=== PATIENT | male | born 1960 | race African-American/Black ===

== ENCOUNTER 2021-10-23 07:13 | Inpatient (IN) | payer MEDICARE, MEDICAID ==
[2021-10-23] VITALS (56 sets, daily range): BP systolic 105–169; BP diastolic 65–110
[~2021-10-23] VITALS: Ht 190.5 cm; Wt 86.7 kg
[2021-10-23 07:41] LABS: BASOPHILS % 0.6 % (0.0-2.0); EOSINOPHILS % 2.7 % (0.0-5.0); HEMATOCRIT. 51.5 % (42.0-52.0); HEMOGLOBIN. 16.7 g/dL (14.0-18.0); LYMPHOCYTES % 35.2 % (20.0-50.0); MEAN CORPUSCULAR HEMOGLOBIN 28.8 pg (28.0-32.0); MONOCYTES % 6.1 % (2.0-8.0); NEUTROPHILS % 55.4 % (40.0-76.0); PLATELET 259 x1000/uL (130-400); RED BLOOD CELL COUNT 5.79 mill/uL (4.7-6.1); RED CELL DISTRIBUTION WIDTH 17.6 % (11.6-14.6)
[2021-10-23 07:48] LABS: CHLORIDE 112 mEq/L (98-107)
[2021-10-23] MEDS ORDERED: HEPARIN 5000 UNITS/ML VIAL IV ONE (08:15)
[2021-10-23] MEDS ORDERED: ASPIRIN 325MG EC TABLET PO ONE (08:15)
[2021-10-23] MEDS ORDERED: LIDOCAINE HCL/PF 1% 10 MG/ML 5ML VIAL ONE ×2 (08:16→08:35)
[2021-10-23] MEDS ORDERED: IODIXANOL 320MG/ML 100 ML BOTTLE IV ONE (08:16)
[2021-10-23] MEDS ORDERED: HEPARIN 1000 UNITS/ML 10ML ONE (08:16)
[2021-10-23] MEDS ORDERED: VERAPAMIL HCL 2.5 MG/1 ML 2ML VIAL IV ONE (08:16)
[2021-10-23] MEDS ORDERED: FENTANYL CITRATE/PF 50MCG/ML 2ML VIAL ONE (08:16)
[2021-10-23] MEDS ORDERED: DIPHENHYDRAMINE 50MG/ML VIAL ONE (08:16)
[2021-10-23] MEDS ORDERED: MIDAZOLAM HCL 2 MG/2 ML VIAL ONE (08:16)
[2021-10-23] MEDS ORDERED: HYDRALAZINE 20MG/ML VIAL ONE ×2 (09:10→09:28)
[2021-10-23] MEDS ORDERED: CLOPIDOGREL 75MG TABLET ONE (09:21)
[2021-10-23] MEDS ORDERED: TICAGRELOR 90 MG TABLET PO ONE (09:30)
[2021-10-23] MEDS ORDERED: CARVEDILOL 12.5MG TABLET PO NR (10:30)
[2021-10-23] MEDS ORDERED: NITROGLYCERIN 0.4MG TABLET SL SL PRN (10:30)
[2021-10-23] MEDS ORDERED: ACETAMINOPHEN 325MG TABLET PO PRN ×3 (10:30)
[2021-10-23] MEDS ORDERED: ZOLPIDEM TARTRATE 5MG TABLET PO PRN (10:30)
[2021-10-23] MEDS ORDERED: DOCUSATE SODIUM 100MG CAPSULE PO PRN (10:30)
[2021-10-23] MEDS ORDERED: ONDANSETRON HCL 4MG/2ML INJ IV PRN ×2 (10:30)
[2021-10-23] MEDS ORDERED: GUAIFENESIN 200MG/10ML SUGAR FREE UDC PO PRN (10:30)
[2021-10-23] MEDS ORDERED: IPRATROPIUM/ALBUTEROL 0.5-3(2.5)MG/3ML NEB NEB PRN (10:30)
[2021-10-23] MEDS ORDERED: TRAMADOL 50MG TABLET PO PRN (10:30)
[2021-10-23] MEDS ORDERED: MORPHINE SULFATE 2 MG/ML CPJ (NOT FOR IM USE) IV PRN (10:30)
[2021-10-23] MEDS ORDERED: NA PHOS,M-B/NA PHOS,DI-BA ENEMA 118ML PR PRN (10:30)
[2021-10-23] MEDS ORDERED: ATROPINE SULFATE 1MG/10ML SYR IV PRN (10:30)
[2021-10-23] MEDS ORDERED: MAGNESIUM/ALUMINUM HYDROXIDE/SIMETHICONE 30ML UDC PO PRN (10:30)
[2021-10-23] MEDS ORDERED: CLONIDINE 0.1MG TABLET PO PRN (10:30)
[2021-10-23] MEDS ORDERED: NALOXONE HCL 0.4MG/ML VIAL IV PRN (10:45)
[2021-10-23] MEDS: FAMOTIDINE 20MG TABLET PO SCH (12:47)
[2021-10-23] MEDS: AMLODIPINE 10MG TABLET PO SCH (12:48)
[2021-10-23] MEDS: NITROGLYCERIN OINT 1GM/INCH UDPKT TD SCH ×3 (12:48→21:17)
[2021-10-23] MEDS: HYDRALAZINE HCL 50MG TABLET PO SCH ×2 (15:19→21:17)
[2021-10-23] MEDS: ISOSORB DINIT/HYDRALAZINE HCL 20/37.5MG TABLET PO SCH ×2 (15:20→21:17)
[2021-10-23 15:30] LABS: FOLIC ACID (FOLATE) SERUM 5.3 ng/mL (>5.38)
[2021-10-23] MEDS ORDERED: SPIR25TA6 MT (15:39)
[2021-10-23] MEDS ORDERED: TELM20TA2 PO (15:39)
[2021-10-23] MEDS ORDERED: ASPI-1497 PO (15:39)
[2021-10-23] MEDS ORDERED: LISI20TA31 MT (15:39)
[2021-10-23] MEDS ORDERED: ROSU5TAB PO (15:39)
[2021-10-23] MEDS ORDERED: TRAM50TA94 MT (15:39)
[2021-10-23] MEDS ORDERED: COR25 PO (15:39)
[2021-10-23] MEDS ORDERED: WARF-53 MT (15:39)
[2021-10-23] MEDS ORDERED: AMIO100T4 PO (15:39)
[2021-10-23] MEDS ORDERED: MINO2.5T2 PO (15:39)
[2021-10-23] MEDS ORDERED: ATROV3 INH (15:39)
[2021-10-23] MEDS ORDERED: FURO80TA3 MT (15:39)
[2021-10-23] MEDS ORDERED: ASPIRIN 81MG EC TABLET PO NR (17:15)
[2021-10-23] MEDS ORDERED: TICAGRELOR 90 MG TABLET PO NR (17:15)
[2021-10-23 17:41] LABS: *AMPHETAMINES SCREEN URINE NEGATIVE (NEGATIVE); *BARBITURATES SCREEN URINE NEGATIVE (NEGATIVE); *BENZODIAZEPINES SCREEN URINE PRESUMTIVE POSITIVE (NEGATIVE); *COCAINE SCREEN URINE NEGATIVE (NEGATIVE); CANNABINOID URINE SCREEN PRESUMTIVE POSITIVE (NEGATIVE); METHADONE URINE SCREEN NEGATIVE (NEGATIVE); OPIATES URINE SCREEN NEGATIVE (NEGATIVE); PHENCYCLIDINE URINE SCREEN NEGATIVE (NEGATIVE)
[2021-10-23 17:48] LABS: INR 3.4; PROTHROMBIN TIME 32.8 sec (9.6-11.0)
[2021-10-23 18:14] LABS: ETHANOL BLOOD < 10 mg/dL; HDL CHOLESTEROL 37 mg/dL (40-59); LDL CHOLESTEROL 75 mg/dL (5-100); T4 FREE 1.33 ng/dL (0.76-1.46); TOTAL IRON BINDING CAPACITY 308 ug/dL (250-450)
[2021-10-23] MEDS: CARVEDILOL 12.5MG TABLET PO SCH (18:15)
[2021-10-23] MEDS ORDERED: ATORVASTATIN CALCIUM 40MG TABLET PO SCH ×2 (21:00)
[2021-10-23] MEDS: FUROSEMIDE 40MG/4ML VIAL IVP SCH (21:16)
[2021-10-23] MEDS: ATORVASTATIN CALCIUM 40MG TABLET PO SCH (21:17)
[2021-10-23 23:44] LABS: PROTHROMBIN TIME 29.5 sec (9.6-11.0)
[2021-10-24] VITALS (19 sets, daily range): BP systolic 113–167; BP diastolic 50–121
[2021-10-24 00:45] LABS: CREATINE KINASE MB FRACTION 4.8 ng/mL (0.5-3.6)
[2021-10-24] MEDS: NITROGLYCERIN OINT 1GM/INCH UDPKT TD SCH ×3 (06:00→21:02)
[2021-10-24] MEDS: CARVEDILOL 12.5MG TABLET PO SCH ×2 (06:00→17:28)
[2021-10-24] MEDS: ISOSORB DINIT/HYDRALAZINE HCL 20/37.5MG TABLET PO SCH ×3 (06:00→21:01)
[2021-10-24] MEDS: HYDRALAZINE HCL 50MG TABLET PO SCH ×3 (06:00→21:01)
[2021-10-24] MEDS: FAMOTIDINE 20MG TABLET PO SCH (09:00)
[2021-10-24] MEDS: AMLODIPINE 10MG TABLET PO SCH (09:00)
[2021-10-24 11:59] LABS: CHLORIDE 107 mEq/L (98-107)
[2021-10-24] MEDS ORDERED: TICAGRELOR 90 MG TABLET PO SCH (12:00)
[2021-10-24 12:02] LABS: BASOPHILS % 0.6 % (0.0-2.0); EOSINOPHILS % 1.5 % (0.0-5.0); HEMATOCRIT. 45.6 % (42.0-52.0); HEMOGLOBIN. 15.2 g/dL (14.0-18.0); LYMPHOCYTES % 14.7 % (20.0-50.0); MEAN CORPUSCULAR HEMOGLOBIN 28.6 pg (28.0-32.0); MEAN CORPUSCULAR VOLUME 85.9 fL (80.0-94.0); MEAN PLATELET VOLUME 9.1 fl (7.4-10.4); MONOCYTES % 7.2 % (2.0-8.0); PLATELET 231 x1000/uL (130-400); RED BLOOD CELL COUNT 5.31 mill/uL (4.7-6.1); RED CELL DISTRIBUTION WIDTH 16.6 % (11.6-14.6)
[2021-10-24] MEDS: FUROSEMIDE 40MG/4ML VIAL IVP SCH ×2 (12:06→20:57)
[2021-10-24 12:13] LABS: PHOSPHORUS 2.3 mg/dL (2.5-4.9)
[2021-10-24] MEDS: CLOPIDOGREL 75MG TABLET PO SCH (12:41)
[2021-10-24] MEDS: ASPIRIN 81MG EC TABLET PO SCH (12:41)
[2021-10-24] MEDS ORDERED: TICAGRELOR 90 MG TABLET PO NR (13:00)
[2021-10-24] MEDS: ATORVASTATIN CALCIUM 40MG TABLET PO SCH (20:57)
[2021-10-24] MEDS ORDERED: CLOPIDOGREL 75MG TABLET PO NR (21:00)
[2021-10-25] VITALS (17 sets, daily range): BP systolic 75–162; BP diastolic 61–124
[2021-10-25] MEDS: CARVEDILOL 12.5MG TABLET PO SCH (06:15)
[2021-10-25] MEDS: ISOSORB DINIT/HYDRALAZINE HCL 20/37.5MG TABLET PO SCH ×2 (06:15→14:24)
[2021-10-25] MEDS: NITROGLYCERIN OINT 1GM/INCH UDPKT TD SCH ×2 (06:15→14:24)
[2021-10-25] MEDS: HYDRALAZINE HCL 50MG TABLET PO SCH ×2 (06:15→14:24)
[2021-10-25] MEDS: CLOPIDOGREL 75MG TABLET PO SCH (08:23)
[2021-10-25] MEDS: FUROSEMIDE 40MG/4ML VIAL IVP SCH (08:23)
[2021-10-25] MEDS: AMLODIPINE 10MG TABLET PO SCH (08:24)
[2021-10-25] MEDS: FAMOTIDINE 20MG TABLET PO SCH (08:24)
[2021-10-25] MEDS: ASPIRIN 81MG EC TABLET PO SCH (08:24)
[2021-10-26] MEDS ORDERED: FUROSEMIDE 40MG TABLET PO SCH (09:00)
== END 2021-10-25 15:00 | disposition home or self-care (01) | DRG 246 ==
LOC: ER 07:13 → CVICU 08:41 → EDBEDREQ 08:43 → EDBEDREQTM 08:43
PROVIDERS: ADMIT Internal Medicine; ATTEND Internal Medicine
PROC: 027034Z Dilation of Coronary Artery, One Artery with Drug-eluting Intraluminal Device, Percutaneous Approach (ICD-10-PCS; principal; 2021-10-23)
PROC: B211YZZ Fluoroscopy of Multiple Coronary Arteries using Other Contrast (ICD-10-PCS; 2021-10-23)
PROC: 5A09357 Assistance with Respiratory Ventilation, Less than 24 Consecutive Hours, Continuous Positive Airway Pressure (ICD-10-PCS; 2021-10-23)
DX: I21.19 ST elevation (STEMI) myocardial infarction involving other coronary artery of inferior wall (principal); I50.43 Acute on chronic combined systolic (congestive) and diastolic (congestive) heart failure; J96.01 Acute respiratory failure with hypoxia; N17.0 Acute kidney failure with tubular necrosis; I42.9 Cardiomyopathy, unspecified; I13.0 Hypertensive heart and chronic kidney disease with heart failure and stage 1 through stage 4 chronic kidney disease, or unspecified chronic kidney disease; N18.9 Chronic kidney disease, unspecified; E78.5 Hyperlipidemia, unspecified; J44.9 Chronic obstructive pulmonary disease, unspecified; Z82.49 Family history of ischemic heart disease and other diseases of the circulatory system; Z95.810 Presence of automatic (implantable) cardiac defibrillator; Z20.822 Contact with and (suspected) exposure to COVID-19; I73.9 Peripheral vascular disease, unspecified; I71.4 Abdominal aortic aneurysm, without rupture; I48.0 Paroxysmal atrial fibrillation; Z95.5 Presence of coronary angioplasty implant and graft; Z79.899 Other long term (current) drug therapy; Z79.02 Long term (current) use of antithrombotics/antiplatelets
CPT/HCPCS: 36415; 71045; 80048; 80053; 80061; 80305; 80320; 82550; 82553; 82607; 82746; 82962; 83036; 83540; 83550; 83735; 83880; 84100; 84439; 84443; 84484; 85025; 85347; 87426; 92928; 93005; 93306; 93458; 93970; 94660; 97162; 97166; 99291; C1725; C1760; C1769; C1874; C1887; C1893; C9803; J0360; J1200; J1644; J1940; J2250; J3010; J3490; Q9967; G0480; J8499

== ENCOUNTER 2022-01-09 17:22 | Inpatient (IN) | payer MEDICARE, MEDICAID ==
[~2022-01-09] VITALS: Ht 182.9 cm; Wt 91.0 kg
[~2022-01-09 17:22] MED LIST: AMIO100T4 PO; ASPI-1497 PO; ATROV3 INH; COR25 PO; FURO80TA3 MT; LISI20TA31 MT; MINO2.5T2 PO; ROSU5TAB PO; SPIR25TA6 MT; TELM20TA2 PO; TRAM50TA94 MT; WARF-53 MT
[2022-01-09] MEDS ORDERED: METHYLPREDNISOLONE SOD SUCC 125 MG/2 ML VIAL IV STA (17:32)
[2022-01-09] MEDS ORDERED: ALBUTEROL (0.083%) 2.5MG/3ML NEB HHN NR (17:32)
[2022-01-09] MEDS ORDERED: IPRATROPIUM BROMIDE (0.02%) 0.5MG/2.5ML NEB HHN NR (17:32)
[2022-01-09] MEDS ORDERED: IPRATROPIUM BROMIDE (0.02%) 0.5MG/2.5ML NEB HHN STA (17:32)
[2022-01-09] MEDS ORDERED: ALBUTEROL (0.083%) 2.5MG/3ML NEB HHN STA (17:32)
[2022-01-09] MEDS ORDERED: MAGNESIUM 2 G PREMIX 50 ML IV ONE (17:45)
[2022-01-09 17:49] LABS: BASOPHILS % 0.7 % (0.0-2.0); EOSINOPHILS % 5.6 % (0.0-5.0); HEMATOCRIT. 50.8 % (42.0-52.0); HEMOGLOBIN. 16.1 g/dL (14.0-18.0); LYMPHOCYTES % 39.5 % (20.0-50.0); MEAN CORPUSCULAR HEMOGLOBIN 28.8 pg (28.0-32.0); MEAN CORPUSCULAR VOLUME 90.7 fL (80.0-94.0); MONOCYTES % 6.4 % (2.0-8.0); NEUTROPHILS % 47.8 % (40.0-76.0); PLATELET 306 x1000/uL (130-400); RED CELL DISTRIBUTION WIDTH 15.4 % (11.6-14.6)
[2022-01-09 17:51] LABS: BG BASE EXCESS -14.1 mmol/L (-2.0-2.0); BG CARBOXYHEMOGLOBIN 0.8 % (0.5-1.5); BG DEOXYHEMOGLOBIN 3.5 % (0.0-5.0); BG FRACTION INSPIRED OXYGEN 100; BG HCO3 ACT 12.1 mmol/L (22.0-26.0); BG METHEMOGLOBIN 0.4 % (0.0-1.5); BG OXYGEN SATURATION 96.5 % (92.0-98.5); BG OXYHEMOGLOBIN 95.3 % (94.0-97.0); BG PCO2 30.2 mmHg (35.0-45.0); BG SAMPLE SITE LEFT RADIAL; BG TOTAL HEMOGLOBIN 16.9 g/dL (12.0-18.0); BG VENT MODE MASK - NRB
[2022-01-09] MEDS ORDERED: ONDANSETRON HCL 4MG/2ML INJ IV ONE (18:00)
[2022-01-09 18:01] LABS: PARTIAL THROMBOPLASTIN TIME 44.1 sec (23.4-31.0); PROTHROMBIN TIME 20.8 sec (9.6-11.0)
[2022-01-09 18:07] LABS: CHLORIDE 100 mEq/L (98-107)
[2022-01-09] MEDS ORDERED: AZITHROMYCIN 500 MG TABLET PO ONE (22:15)
[2022-01-09] MEDS ORDERED: ONDANSETRON HCL 4MG/2ML INJ IV PRN (22:30)
[2022-01-09] MEDS ORDERED: MAGNESIUM/ALUMINUM HYDROXIDE/SIMETHICONE 30ML UDC PO PRN (22:30)
[2022-01-09] MEDS ORDERED: ACETAMINOPHEN 325MG TABLET PO PRN ×2 (22:30)
[2022-01-09] MEDS ORDERED: NITROGLYCERIN 0.4MG TABLET SL SL PRN (22:30)
[2022-01-09] MEDS ORDERED: ZOLPIDEM TARTRATE 5MG TABLET PO PRN (22:30)
[2022-01-09] MEDS ORDERED: CLONIDINE 0.1MG TABLET PO PRN (22:30)
[2022-01-09] MEDS ORDERED: DOCUSATE SODIUM 100MG CAPSULE PO PRN (22:30)
[2022-01-09] MEDS ORDERED: TRAMADOL 50MG TABLET PO PRN (22:30)
[2022-01-09] MEDS ORDERED: NA PHOS,M-B/NA PHOS,DI-BA ENEMA 118ML PR PRN (22:30)
[2022-01-09] MEDS ORDERED: IPRATROPIUM/ALBUTEROL 0.5-3(2.5)MG/3ML NEB NEB PRN (22:30)
[2022-01-09] MEDS ORDERED: AMLODIPINE 10MG TABLET PO SCH (22:30)
[2022-01-09] MEDS ORDERED: METOLAZONE 10MG TABLET PO NR (22:30)
[2022-01-09] MEDS ORDERED: GUAIFENESIN 200MG/10ML SUGAR FREE UDC PO PRN (22:30)
[2022-01-09] MEDS ORDERED: WARFARIN SODIUM 5MG TABLET PO NR (23:30)
[2022-01-10 00:03] LABS: T4 FREE 1.51 ng/dL (0.76-1.46)
[2022-01-10] MEDS ORDERED: AZITHROMYCIN 500 MG TABLET PO NR (00:15)
[2022-01-10 00:27] LABS: VITAMIN B12 SERUM 179 pg/mL (211-911)
[2022-01-10 04:49] LABS: HEMATOCRIT. 46.7 % (42.0-52.0); HEMOGLOBIN. 15.3 g/dL (14.0-18.0); MEAN CORPUSCULAR HEMOGLOBIN 28.8 pg (28.0-32.0); MEAN CORPUSCULAR VOLUME 87.9 fL (80.0-94.0); MEAN PLATELET VOLUME 8.7 fl (7.4-10.4); PLATELET 235 x1000/uL (130-400); RED BLOOD CELL COUNT 5.32 mill/uL (4.7-6.1); RED CELL DISTRIBUTION WIDTH 15.8 % (11.6-14.6)
[2022-01-10 04:55] LABS: CHLORIDE 101 mEq/L (98-107)
[2022-01-10 04:59] LABS: INR 1.9; PROTHROMBIN TIME 19.3 sec (9.6-11.0)
[2022-01-10 05:07] LABS: CREATINE KINASE 52 IU/L (39-308); PHOSPHORUS 3.6 mg/dL (2.5-4.9)
[2022-01-10 05:31] VITALS: BP 119/80
[2022-01-10] MEDS ORDERED: CARVEDILOL 3.125 MG TABLET PO SCH (06:00)
[2022-01-10] MEDS ORDERED: FAMOTIDINE 20MG TABLET PO SCH (09:00)
[2022-01-10] MEDS ORDERED: CLOPIDOGREL 75MG TABLET PO SCH (09:00)
[2022-01-10] MEDS ORDERED: ASPIRIN 81MG EC TABLET PO SCH (09:00)
[2022-01-10] MEDS ORDERED: AMIODARONE HCL 200 MG TABLET PO SCH (09:00)
[2022-01-10] MEDS ORDERED: ENOXAPARIN 100MG/ML SYR SUBCUT SCH (09:00)
[2022-01-10] MEDS ORDERED: FUROSEMIDE 40MG/4ML VIAL IVP SCH ×2 (09:00→11:45)
[2022-01-10 10:53] LABS: PLATELET ESTIMATE NORMAL
== END 2022-01-10 10:15 | disposition left against medical advice (07) | DRG 280 ==
LOC: ER 17:22 → SUPCPDRO 22:18 → MICUSO 23:18 → 3WST 01-10 09:56
PROVIDERS: ADMIT Internal Medicine; ATTEND Internal Medicine
DX: I11.0 Hypertensive heart disease with heart failure (principal); I21.4 Non-ST elevation (NSTEMI) myocardial infarction; I50.43 Acute on chronic combined systolic (congestive) and diastolic (congestive) heart failure; J96.01 Acute respiratory failure with hypoxia; N17.0 Acute kidney failure with tubular necrosis; I16.1 Hypertensive emergency; E87.1 Hypo-osmolality and hyponatremia; J44.1 Chronic obstructive pulmonary disease with (acute) exacerbation; I42.9 Cardiomyopathy, unspecified; I25.10 Atherosclerotic heart disease of native coronary artery without angina pectoris; E88.09 Other disorders of plasma-protein metabolism, not elsewhere classified; I48.91 Unspecified atrial fibrillation; Z53.29 Procedure and treatment not carried out because of patient's decision for other reasons; Z95.810 Presence of automatic (implantable) cardiac defibrillator; Z79.01 Long term (current) use of anticoagulants; Z98.61 Coronary angioplasty status
CPT/HCPCS: 36415; 36600; 71045; 80053; 80061; 82375; 82550; 82553; 82607; 82746; 82805; 83540; 83550; 83605; 83735; 83880; 84100; 84439; 84443; 84484; 85025; 93005; 93970; 99291; J2405; J2930; J3475